=== PATIENT | male | born 1935 | race Two or more races ===

== ENCOUNTER 2024-05-12 13:20 | Emergency (ER) | payer SELFPAY ==
[2024-05-12 13:22] VITALS: BP 133/73; PULSE 73; RESP 19; TEMP 36.9; O2SAT 96; BMI 21.7
[2024-05-12 13:27] VITALS: BP 143/76; PULSE 77; O2SAT 94
[2024-05-12 13:30] VITALS: BP 133/73; PULSE 74; O2SAT 95
--- NOTE | 2024-05-12 13:38 | XR_ITS ---
PROCEDURE INFORMATION: Exam: XR Chest Exam date and time: 05/12/2024 1:48 PM Age: 88 years old Clinical indication: Cough and dyspnea; Additional info: Cough, SOB TECHNIQUE: Imaging protocol: Radiologic exam of the chest. Views: 2 views. COMPARISON: No relevant prior studies available. FINDINGS: Lungs: Hyperlucent changes are demonstrated. Increase in the lung volumes is demonstrated. Bilateral bronchiectasis with regions of bibasilar subsegmental atelectasis. Peribronchial thickening compatible with bronchitis. Pleural spaces: Unremarkable. No pleural effusion. No pneumothorax. Heart/Mediastinum: Unremarkable. No cardiomegaly. Bones/joints: Unremarkable. IMPRESSION: 1. Bilateral bronchiectasis with regions of bibasilar subsegmental atelectasis. 2. Findings compatible with interstitial lung disease
--- NOTE | 2024-05-12 13:39 | [facility].EDCP ---
Discharge Plan Disposition Patient Disposition: Home, Self-Care Prescriptions Prescriptions: New doxycycline hyclate 100 mg capsule 100 mg PO BID 10 Days Qty: 20 0RF prednisone 50 mg tablet 50 mg PO DAILY 4 Days Qty: 4 0RF Referrals Follow up/Referrals: Provider,Referral, MD [Primary Care Provider] - See instructions Activity Restrictions/Add. Instructions Additional Instructions/Restrictions: At this time it was felt you are safe to be discharged home. If new or worsening symptoms please do not hesitate to return the emergency department. If you wish to establish care with a family doctor please call Dr. Santillan's office and make an appointment. Please take your medications as prescribed and use your inhaler 3 puffs every 3 hours as needed for shortness of breath. Clinical Impressions Clinical Impression: Acute interstitial pneumonia, Laryngitis Discharge ED Provider: Castro Mckeon HPI General Chief Complaint: Shortness of Breath/Dyspnea Stated Complaint: cough, chest congestion Time Seen by Provider: 05/12/24 13:24 History of Present Illness HPI narrative: Patient is an 88-year-old male with no past medical history not on chronic medications who presents emergency department for evaluation of cough and shortness of breath. Onset was acute, over the last 7 days. He has had productive cough and shortness of breath, he is not a smoker, has no chest pain, no extremity swelling. He does not have a sore throat however has had some change in his phonation with his voice. No limited range of motion. Due to persistent symptoms he presents here for continued evaluation. History is obtained by son at bedside who acts as social worker palliative care. Formal interpretation was offered however patient prefers his son to interpret. Related Data Previous Rx's Medication Instructions Recorded doxycycline hyclate 100 mg capsule 100 mg PO BID Pneumonia 10 days 05/12/24 #20 caps prednisone 50 mg tablet 50 mg PO DAILY Pneumonia 4 days #4 05/12/24 tabs Allergies Allergy/AdvReac Type Severity Reaction Status Date / Time No Known Allergies Allergy Verified 05/12/24 14:45 [facility] Disclaimer: The information contained in this section may have been updated after the patient was seen, as this information can be updated by other users. Social History Smoking Status: Former smoker alcohol intake: never current occupational status: other Travel in the last 8 weeks: None ROS Obtained: Yes Systems reviewed as appropriate & no additional complaints except as documented Physical Exam General General appearance: alert and in no apparent distress Head Head exam: atraumatic and normocephalic Eye Eye exam: Present PERRL ENT ENT exam: Present mucous membranes moist Neck Neck exam: Present normal inspection Chest Chest inspection: Present normal inspection and symmetric chest wall rise Respiratory Respiratory exam: Present wheezes (Scant, all lung clark); Absent respiratory distress Cardiovascular Cardiovascular exam: Present regular rate and normal rhythm Abdominal Exam Abdominal exam: Present soft; Absent tenderness Extremities Exam Extremities exam: Present normal inspection Neurological Exam Neurological exam: Present alert and CN II-XII intact Psychiatric Psychiatric exam: Present normal affect Skin Skin exam: Present warm and dry HEART Score HEART Score HEART Score assessment performed?: Yes History (anamnesis): Slightly suspicious ECG: Normal Age: >65 years Risk factors: No known risk factors Troponin: </= normal limit HEART Score: 2 Critical Care Critical Care Time Critical Care Time: No Medical Decision Making Alex Inquiry Pt receiving controlled substance: No Vital Signs Vital Signs: 05/12/24 13:22 05/12/24 13:27 05/12/24 13:30 Temperature 98.5 F Temperature Source Oral Pulse Rate 77 74 Pulse Rate [Right] 73 Respiratory Rate 19 Blood Pressure 143/76 H 133/73 Blood Pressure [Right Arm] 133/73 Blood Pressure Mean [Right Arm] 93 Blood Pressure Source [Right Arm] Automatic Cuff 02 Sat by Pulse Oximetry 96 94 L 95 Oxygen Delivery Method Room Air 05/12/24 13:45 05/12/24 13:45 05/12/24 13:45 Temperature Temperature Source Pulse Rate 83 74 Pulse Rate [Right] Respiratory Rate Blood Pressure Blood Pressure [Right Arm] Blood Pressure Mean [Right Arm] Blood Pressure Source [Right Arm] 02 Sat by Pulse Oximetry 94 L Oxygen Delivery Method Room Air Lab Data Labs: Lab Results 05/12/24 13:52: WBC 9.9, RBC 4.00 L, Hgb 12.6 L, Hct 38.2 L, MCV 95.4 H, MCH 31.6 H, MCHC 33.1, RDW 14.4, Plt Count 382, MPV 7.8, Neut % (Auto) 75.4, Lymph % (Auto) 18.5, Braxton % (Auto) 5.5, Eos % (Auto) 0.2, Baso % (Auto) 0.4, Neut # (Auto) 7.5, Lymph # (Auto) 1.8, Braxton # (Auto) 0.5, Eos # (Auto) 0.0, Baso # (Auto) 0.0, Sodium 142, Potassium 4.7, Chloride 111 H, Carbon Dioxide 25, Anion Gap 10.7, BUN 20, Creatinine 1.00, Estimated Creat Clear 44, Estimated GFR 71, Est GFR ( Amer) 85, Glucose 129 H, Calcium 9.1, Total Bilirubin 1.0, AST 49, ALT 45, Alkaline Phosphatase 89, Troponin I < 0.01, Total Protein 7.7, Albumin 3.9, Globulin 3.8 H, Albumin/Globulin Ratio 1.0 L 05/12/24 13:55: SARS-CoV-2 (PCR) Not detected, Influenza A Untype (PCR) Not detected, Influenza Type B (PCR) Not detected 05/12/24 13:52 05/12/24 13:52 Response Orders (Tests/Meds): ED MEDICATIONS Discontinued Medications Generic Name Dose Route Start Last Admin Trade Name Bravoq PRN Reason Stop Dose Admin Albuterol/Ipratropium 3 ml 05/12/24 13:38 05/12/24 13:44 Ipratropium/Albuterol 3 Ml Neb IH 05/12/24 13:39 3 ml ONCE ONE Administration Doxycycline Hyclate 100 mg 05/12/24 14:44 Doxycycline Hycl 100 Mg Tablet PO 05/12/24 14:45 ONCE ONE Methylprednisolone Sodium Succinate 125 mg 05/12/24 13:38 05/12/24 14:10 Methylprednisolone Sod Succ 125mg Vial IV 05/12/24 13:39 125 mg ONCE ONE Administration ORDERS Category Date Time Status CXR 2 view (NOT portable) [XR chest 2V] Stat Exams 05/12/24 13:38 Taken CBC w/Auto Diff [Complete Blood Count Auto Diff] Stat Lab 05/12/24 13:52 Completed CMP [Comprehensive Metabolic Panel] Stat Lab 05/12/24 13:52 Completed Rapid PCR Covid and Flu A/B Stat Lab 05/12/24 13:55 Completed Trop I [Troponin I] Stat Lab 05/12/24 13:52 Completed Troponin I Q3H Lab 05/12/24 16:45 Ordered Troponin I Q3H Lab 05/12/24 19:45 Ordered EKG Request [ECG Request] Stat Y 05/12/24 13:41 Ordered ECG Data Tracing #1: ECG Narrative: Independently interpreted by me, rate 78, rhythm is regular, axis is normal, no ST elevation in anatomical contiguous leads, QTc 402. No ST elevation in anatomical contiguous leads. MDM Narrative Medical Decision Narrative: In summary patient is a 88-year-old male with past medical history described above who presents emergency department for evaluation of cough and shortness of breath. Patient is hemodynamically stable nontoxic-appearing upon arrival, afebrile, coughing at bedside. Clinically patient has laryngitis and a lower respiratory tract infection. Differential includes viral versus pneumonia. Atypical ACS is on the differential however much less likely. Workup will be conducted with hematologic labs, two-view chest x-ray, EKG, single troponin. Initial inventions include methylprednisolone, DuoNeb. Workup reviewed by me, hematologic labs have no significant leukocytosis, no LUCILA or critical electrolyte abnormality. COVID-negative. Initial troponin undetectably low. Chest x-ray informally interpreted by me, interstitial pneumonia. Upon repeat evaluation patient continued to be well-appearing, no tachycardia, no hypoxia, no labored breathing. Given this patient will be discharged with a course of steroids and doxycycline and was given multiple return precautions. Respiratory showed patient how to use metered-dose inhaler at bedside prior to discharge.
[2024-05-12] MEDS: IPRATROPIUM/ALBUTEROL 3 ML NEB IH (13:44)
[2024-05-12 13:45] VITALS: PULSE 74; PULSE 83; O2SAT 94
--- NOTE | 2024-05-12 13:57 | PC.NURSE ---
PT TO XR
[2024-05-12 14:01] LABS: Coronavirus 19, PCR Not Detected (NotDetected); Influenza A, PCR Not Detected (NotDetected); Influenza B, PCR Not Detected (NotDetected)
[2024-05-12 14:05] LABS: Basophils % 0.4 % (0.1-2.0); Eosinophils % 0.2 % (0.1-12.0); Hematocrit 38.2 % (42.0-52.0); Hemoglobin 12.6 g/dL (14.1-18.0); Lymphocytes # 1.8 K/mm3 (0.7-4.5); Lymphocytes % 18.5 % (10-50); Mean Corpuscular HGB Conc 33.1 g/dL (31.8-35.4); Mean Corpuscular Hemoglobin 31.6 pg (27.0-31.2); Mean Corpuscular Volume 95.4 fl (80-94); Mean Platelet Volume 7.8 fl (7.4-10.4); Monocytes # 0.5 K/mm3 (0.1-1.0); Monocytes % 5.5 % (1.7-9.3); Neutrophils # 7.5 K/mm3 (1.8-7.8); Neutrophils % 75.4 % (37.0-80.0); Platelet Count 382 K/mm3 (142-424); Red Cell Distribution Width 14.4 % (11.5-17.5); White Blood Count 9.9 K/mm3 (4.8-10.8)
[2024-05-12 14:07] LABS: Chloride 111 mmol/L (98-107); Potassium 4.7 mmoL/L (3.5-5.1); Sodium 142 mmol/L (136-145)
[2024-05-12 14:10] LABS: Alanine Aminotransferase 45 U/L (12-78); Albumin Level 3.9 g/dl (3.5-5.0); Alkaline Phosphatase 89 U/L (38-126); Anion Gap 10.7 mEq/L (5-15); Aspartate Amino Transferase 49 U/L (17-59); Blood Urea Nitrogen 20 mg/dl (9-20); Calcium 9.1 mg/dl (8.4-10.2); Carbon Dioxide 25 mmol/L (22.0-30.0); Creatinine Clearance Estimated 44 mL/min (50-200); Estimated Glomerular Filt Rate 71 ml/min (>60); GFR (African American) 85 ML/MIN (>60); Globulin 3.8 g/dL (1.3-3.2); Glucose 129 mg/dl (74-100); Total Protein,Serum 7.7 g/dl (6.3-8.2)
[2024-05-12] MEDS: METHYLPREDNISOLONE SOD SUCC 125MG VIAL 125 MG IV (14:10)
--- NOTE | 2024-05-12 14:10 | ECG_ITS ---
APPROVED REPORT Exam: Resting ECG HR:78 bpm ECG Measurements Heart Rate 78 AXES AR 145 P 65 QRSd 77 QRS 66 QT 369 T 47 QTc 402 Conclusion SINUS RHYTHM NORMAL ECG Electronically signed by : CANDELARIO BOND, 05/12/2024 15:20:18
[2024-05-12 14:23] LABS: Troponin I < 0.01 ng/ml (0.00-0.034)
[2024-05-12 14:30] VITALS: BP 136/76; PULSE 84; O2SAT 93
--- NOTE | 2024-05-12 14:40 | PC.NURSE ---
DR BOND AT BEDSIDE
[2024-05-12] MEDS: DOXYCYCLINE HYCL 100 MG TABLET PO (14:50)
[2024-05-12 14:53] VITALS: BP 136/76; PULSE 81; RESP 18; TEMP 36.9; O2SAT 97
[2024-05-12] MEDS: ALBUTEROL-HFA 90MCG/PUFF INHALER 8GM 3 PUFF IH (15:13)
[2024-05-12] MEDS: AEROCHAMBER/OPTIHALER 1 UNIT MC (15:13)
== END 2024-05-12 15:00 | disposition home or self-care (01) ==
PROVIDERS: Emergency Provider Emergency Medicine
DX: J84.114 Acute interstitial pneumonitis (principal); R06.02 Shortness of breath; J04.0 Acute laryngitis; R05.1 Acute cough; R06.2 Wheezing
CPT/HCPCS: 71046; 80053; 84484; 85025; 87636; 93005; 96374; 99284; J2919; J7620